=== PATIENT | male | born 1975 | race Caucasian/White ===

== ENCOUNTER → 2022-10-03 12:50 | Outpatient (CLI) | payer OTHER, SELFPAY ==
--- NOTE | 2022-10-03 12:52 | DI.RAD.S_ITS ---
PROCEDURE: XR HAND RT MIN 3V INDICATIONS: Nail gun to hand TECHNIQUE: 3 views of the hand(s) acquired. COMPARISON: None. FINDINGS: Bones: No acute fractures or dislocations. There is a remote, poorly healed fracture of the radial styloid. Carpal bones are normally aligned. No suspicious bony lesions. Soft tissues: No suspicious soft tissue calcifications. Soft tissue injury with soft tissue gas can be seen. No radiopaque foreign bodies are seen. Debris versus remote tiny foreign bodies can be seen involving the finger tips IMPRESSION: No julio bony injury can be seen. No acute radiopaque foreign body can be seen. Dictated by: Rj Garcia M.D. on 10/03/2022 at 12:28 Approved by: Rj Garcia M.D. on 10/03/2022 at 12:29
== END ==
PROVIDERS: Referring Provider Nurse Practitioner Family; Visit Provider Nurse Practitioner Family
DX: S69.91XA Unspecified injury of right wrist, hand and finger(s), initial encounter (principal); W29.4XXA Contact with nail gun, initial encounter
CPT/HCPCS: 73130